=== PATIENT | male | born 2000 | race Caucasian/White ===

== ENCOUNTER 2018-11-16 14:05 | Emergency (ER) | payer MEDICAID ==
[~2018-11-16] VITALS: Ht 180.3 cm; Wt 86.0 kg
[2018-11-16 14:09] VITALS: BP 119/65
[2018-11-16] MEDS ORDERED: ERYT1OIN6 RIGHTEYE (14:54)
== END 2018-11-16 15:08 | disposition home or self-care (01) ==
LOC: ER 14:06
DX: K02.9 Dental caries, unspecified (principal); H10.9 Unspecified conjunctivitis
CPT/HCPCS: 99283